=== PATIENT | male | born 1995 | race Caucasian/White ===

== ENCOUNTER 2019-01-11 11:41 | Day surgery (SDC) | payer BC, OTHER ==
[~2019-01-11] VITALS: Ht 175.3 cm; Wt 69.5 kg
[2019-01-11 12:58] VITALS: Ht 175.3 cm; Wt 69.5 kg
[2019-01-11] MEDS ORDERED: COLACE (13:01)
--- NOTE | 2019-01-11 13:18 | PREAC ---
Date/Time of Note Date/Time of Note DATE: 01/11/19 TIME: 13:17 Anesthesia Eval and Record Evaluation Time Pre-Procedure Interview DATE: 01/11/19 TIME: 13:17 Age 23 Sex male NPO: 8 hrs Preoperative diagnosis constipation Planned procedure colonoscopy Past Medical History Past Medical History: None Surgery & Anesthesia Issues No known issue Meds Anticoagulation: No Beta Amelie within 24 hr: No Reason Beta Amelie not given: Pt. not on B-Amelie Reported Medications [Colace] No Conflict Check 01/11/19 Meds reviewed: Yes Allergies Coded Allergies: No Known Allergy (Unverified , 01/11/19) Allergies Reviewed: Yes Labs/Studies Labs Reviewed: Reviewed by anesthesiologist test: N/A Studies: ECG (n/a) Pre-procedure Exam Airway: Adequate mouth opening Mallampati: Mallampati I Teeth: Normal Lung: Normal Heart: Normal ASA Physical Status ASA physical status: 1 Emergency: None Planned Anesthetic General/MAC: MAC Planned Pain Management Parenteral pain med Pre-operative Attestations Prior to commencing anesthesia and surgery, the patient was re-evaluated, there was verification of: *The patient's identity *The results of appropriate recent lab work and preoperative vital signs *The above evaluation not changing prior to induction *Anesthetic plan, risk benefits, alternative and complications discussed with patient/family; questions answered; patient/family understands, accepts and wishes to proceed. BEVERLY CASAS MD January 11, 2019 13:17
[2019-01-11 13:23] VITALS: BP 109/59; PULSE 92; RESP 15
[2019-01-11] MEDS ORDERED: ONDANSETRON 4 MG INJ IV PRN (13:30)
[2019-01-11] MEDS ORDERED: FENTAnyl 50 MCG/ML VIAL IV PRN (13:30)
--- NOTE | 2019-01-11 14:09 | HPN ---
Date/Time of Note Date/Time of Note DATE: 01/11/19 TIME: 14:09 Interval H&P Admission Note Pt. seen H&P reviewed: No system changes AQUILES WHITFIELD January 11, 2019 14:09
[2019-01-11] MEDS ORDERED: PROPOFOL 20 ML ONE ×2 (14:12→14:44)
[2019-01-11] MEDS ORDERED: FENTAnyl 50 MCG/ML VIAL ONE (14:13)
--- NOTE | 2019-01-12 09:11 | PAC ---
Date/Time of Note Date/Time of Note DATE: 01/12/19 TIME: 09:11 Post-Anesthesia Notes Post-Anesthesia Note Last documented vital signs Vital Signs Date Temp Pulse Resp B/P (MAP) Pulse Ox O2 O2 Flow FiO2 Time Delivery Rate 01/11/19 97.5 92 15 109/59 98 Room Air 13:23 (76) Activity: WNL Respiratory function: WNL Cardiovascular function: WNL Mental status: Baseline Pain reasonably controlled: Yes Hydration appropriate: Yes Nausea/Vomiting absent: No BEVERLY CASAS MD January 12, 2019 09:11
== END 2019-01-11 15:05 | disposition home or self-care (01) ==
LOC: GIL 11:41 → EDBD 14:30 → GIL 15:05
PROVIDERS: ATTEND Internal Medicine Gastroenterology
DX: K92.1 Melena (principal); K64.8 Other hemorrhoids
CPT/HCPCS: 45378; J3010; Z7610